=== PATIENT | male | born 1965 | race African-American/Black ===

== ENCOUNTER 2017-10-30 09:35 | Emergency (ER) | payer OTHER, MEDICAID ==
[~2017-10-30] VITALS: Ht 182.9 cm; Wt 93.0 kg
[~2017-10-30 09:35] MED LIST: ERYTHROMYCIN3.5 GM BOTH EYES
[2017-10-30 10:09] VITALS: BP 146/87
--- NOTE | 2017-10-30 10:16 | Emergency Room Report ---
History of Present Illness General Chief Complaint: General Complaint Source: Patient Present Illness HPI Patient is a 52-year-old male presented after increased generalized weakness and loose stools. Patient reports attending a democrat last night and states that he had been drinking approximately 2 pitchers of alcohol. He denies any fever. He reports having increased was weakness. He denies any black or bloody stools. He reports being a serious smoker and states he smokes approximately one half pack per day. He denies any fever. He denies any chest discomfort or shortness of breath. He reports having a mild headache. Allergies: Coded Allergies: No Known Allergies (Unverified , 04/12/15) Patient History Past Medical History: see triage record Reviewed Nursing Documentation: PMH: Agreed; PSxH: Agreed Nursing Documentation-PMH Past Medical History: No Stated History Review of Systems All Other Systems: negative except mentioned in HPI Physical Exam Vital Signs Date Time Temp Pulse Resp B/P (MAP) Pulse Ox O2 Delivery O2 Flow Rate FiO2 10/30/17 09:59 98.2 115 20 154/92 98 Room Air 98.2 Sp02 EP Interpretation: reviewed, normal General Appearance: normal inspection, well appearing, no apparent distress, alert, GCS 15 Head: atraumatic ENT: normal ENT inspection, hearing grossly normal, normal voice Neck: normal inspection, full range of motion, supple, no bony tend Respiratory: normal inspection, lungs clear, normal breath sounds, no respiratory distress, no retraction, no wheezing Cardiovascular #1: no edema, no gallop, no JVD, no murmur, tachycardia Gastrointestinal: normal inspection, normal bowel sounds, non tender, soft, no guarding, no hernia Genitourinary: no CVA tenderness Musculoskeletal: normal inspection, back normal, normal range of motion Neurologic: normal inspection, alert, oriented x3, responsive, book or script editor III-XII nml as tested, speech normal Psychiatric: normal inspection, judgement/insight normal, mood/affect normal Skin: normal inspection, normal color, no rash Medical Decision Making Diagnostic Impression: Primary Impression: Generalized weakness ER Course Patient presented for generalized weakness. Differential diagnosis included was not limited to anemia, urinary tract infection, electrolyte abnormality, hypothyroidism, myocardial infarction, myasthenia gravis, dehydration, among others. Because of complexity of patient's case laboratory testing and imaging studies were ordered.The patient refused laboratory testing as well as chest x- ray. EKG interpreted by me showed sinus tachycardia with incomplete right bundle-branch block. The patient was advised that the lack of laboratory testing would limit the complete diagnosis. The patient declined medical interventions. The patient was advised smoking cessation. He was given a note for work. The patient is advised to recheck with his primary care physician as his possible. He is advised to return if he changes mind about having testing or further workup done. Last Vital Signs Date Time Temp Pulse Resp B/P (MAP) Pulse Ox O2 Delivery O2 Flow Rate FiO2 10/30/17 10:09 98.2 113 20 146/87 99 Room Air 98.2 Status: unchanged Disposition: HOME, SELF-CARE Condition: Serious Ayden Bolanos MD Oct 30, 2017 10:16
[2017-10-30] MEDS ORDERED: Sodium Chloride 500ML 500 ML IV ONE (10:30)
[2017-10-30 10:39] VITALS: BP 146/87
== END 2017-10-30 10:41 | disposition home or self-care (01) ==
LOC: EMR 10:20
DX: R53.1 Weakness (principal)
CPT/HCPCS: 93005; 99283